=== PATIENT | female | born 1985 | race Caucasian/White ===

== ENCOUNTER 2020-01-26 17:30 | Inpatient (IN) | payer BC ==
[2020-01-26] VITALS (11 sets, daily range): BP systolic 115–154; BP diastolic 62–74; PULSE 76–108; TEMP 97.2–98.5
[~2020-01-26] VITALS: Ht 165.1 cm; Wt 75.9 kg
[2020-01-26 18:21] LABS: BASO % 0.2 % (0.0-2.0); EOS # 0.1 (0.0-0.7); GRAN # 9.4 (1.4-6.5); GRAN % 64.1 % (42.2-75.2); HEMATOCRIT 37.6 % (37.0-47.0); HEMOGLOBIN 13.1 g/dl (12.5-16.0); LYMPH # 3.7 (1.2-3.4); LYMPH % 24.9 % (20.0-51.0); MEAN CELL VOLUME 90 fl (80.0-100.0); MEAN CORPUSCULAR HEMOGLOBIN 31 pg (27.0-31.0); MEAN CORPUSCULAR HGB CONC 35 g/dl (33.0-37.0); MEAN PLATELET VOLUME 10.5 fl (7.4-10.4); MONO # 1.4 (0.1-0.6); MONO % 9.3 % (1.7-9.3); PLATELET COUNT 286 K/mm3 (130-400); REDCELL DISTRIBUTION WIDTH-CV 12.6 % (11.5-14.5)
--- NOTE | 2020-01-26 18:53 | NUR ---
1745 PATIENT HERE FROM HOME WITH COMPLAINTS THAT CONTRACTIONS GETTING VERY INTENSE. SROM AT 1630 AND CONTRACTIONS STARTED RIGHT AFTER AT HOME. EFM ON FHT 125 BABY VERY ACTIVE. CONTRACTIONS EVERY 2 MIN, PATIENT BREATHS THROUGH EACH CONTRACTION. VERY TENSE AND WANTS EPIDURAL NOW. SVE 8/100/0. 1750 DR JARAMILLO CALLED TO COME TO HOSPITAL NOW FOR DELIVERY. IV STARTED IN LEFT WRIST AND BLOOD DRAWN AT THIS TIME BY THIS NURSE AND SENT TO LAB. IVF STARTED AND Boby MILLER NURSE GENERAL DUTY TO COME NOW FOR EPIDURAL PLACEMENT. 1755 PATIENT VERY TENSE AND SWEATY. IV FELL OUT DURING CONTRACTIONS. PATIENT CONTINUES TO BREATH THROUGH EACH CONTRACTION. UNABLE TO REST BETWEEN.PATIENT STARTING TO FEEL PRESSURE WITH EACH CONTRACTION. ENCOURAGED PATIENT TO PANT THROUGH CONTRACTIONS BUT TO NOT PUSH AT THIS TIME. SVE PATIENT COMPLETE, AND FEELING URGE TO PUSH. FHT REMAIN 125. REMAINS AT BEDSIDE. 1800 DR JARAMILLO AT BEDSIDE. WILL PUSH WITH NEXT CONTRACTIONS. 180. BABY GIRL BORN BY DR JARAMILLO. CORD CLAMPED AND CUT BY AND BABY TO MOM CHEST. 1804 PLACENTA DELIVERED AT THIS TIME. FUNDUS FIRM AND MODERATE AMOUNT OF BLEEDING. PATIENT DOES NOT WANT IVV RESTARTED IF DOES NOT NEED IT. DR JARAMILLO ORDERS TO JUST MONITOR BLEEDING FOR NOW. SMALL REPAIR DONE BY DR NAJERA. LIDOCAINE USED AT THIS TIME. 1810 FUNDUS FIRM AND SMALL AMOUNT BLEEDING NOTED.
--- NOTE | 2020-01-26 20:45 | NUR ---
2029 - PT UP TO BATHROOM FOLLOWING RECOVERY. PT ABLE TO VOID 700 ML WITHOUT DIFFICULTIES. PERICARE PROVIDED - PERIPAD, ICEPACK AND MESH UNDERWEAR APPLIED. 2044 - PT TO AMBULATORY WITHOUT DIFFICULTY. PT ORIENTED TO ROOM. QUESTIONS ENCOURAGED AND ANSWERED.
[2020-01-27 02:22] VITALS: BP 112/64; PULSE 64; TEMP 98.4
[2020-01-27] MEDS ORDERED: PRENATAL PO (05:48)
[2020-01-27] MEDS ORDERED: OMEGA-31 SGL PO (05:51)
[2020-01-27] MEDS ORDERED: PROBIOTIC BLEN1 EACH PO (05:52)
[2020-01-27 07:35] VITALS: BP 104/70; PULSE 66; TEMP 98.3
[2020-01-27 15:30] VITALS: BP 122/74; PULSE 57; TEMP 98.2
[2020-01-27 21:00] VITALS: BP 118/78; PULSE 64; TEMP 98.7
[2020-01-28 07:30] VITALS: BP 104/64; PULSE 70; TEMP 98.2
[2020-01-28] MEDS ORDERED: IBU800 M1 PO (10:19)
[2020-01-28 16:00] VITALS: BP 104/68; PULSE 78; TEMP 98.1
== END 2020-01-28 16:17 | disposition home or self-care (01) | DRG 807 ==
LOC: LDRO 17:30 → LDR 17:55 → OB 20:45
PROVIDERS: Obstetrics & Gynecology; ADMIT Student in an Organized Health Care Education/Training Program
PROC: 10E0XZZ Delivery of Products of Conception, External Approach (ICD-10-PCS; principal; 2020-01-26)
PROC: 0KQM0ZZ Repair Perineum Muscle, Open Approach (ICD-10-PCS; 2020-01-26)
DX: O48.0 Post-term pregnancy (principal); Z37.0 Single live birth; O99.824 Streptococcus B carrier state complicating childbirth; Z3A.40 40 weeks gestation of pregnancy; O70.1 Second degree perineal laceration during delivery

== ENCOUNTER → 2020-01-26 | Outpatient (CLI) | payer BC ==
[~2020-01-26] MED LIST: IBU800 M1 PO; OMEGA-31 SGL PO; PRENATAL PO; PROBIOTIC BLEN1 EACH PO
== END ==
LOC: ZCOL.LAB 08:00
DX: Z20.828 Contact with and (suspected) exposure to other viral communicable diseases (principal)

== ENCOUNTER → 2020-02-06 | Outpatient (CLI) | payer BC ==
--- NOTE | 2020-02-06 15:24 | NUR ---
Pt, Hanna Moreno, presents for consult with 11 day old baby girl, Matt Moreno, for a evaluation. Pt has concerns about Matt's latch and possible tongue tie. Matt was born by on 01/26/2019 and weighed 7#14oz (3572 gms). Discharge weight was 7#9oz. Pt reports Matt's weight at her first appointment with Dr. Shelley Metcalf was 7#14oz. This is Hanna's second baby, her first baby did not breastfeed due to other complications. Today Matt weighs 7#11.7 (3506 gms). Pt reports baby has several voids, and stools every 2-3 days. Pt reports Matt breastfeeds directly every other feeding in the daytime and at each feeding in the noc. Matt is bottle fed 2-3oz at three different daytime feedings. She she does pump at these feedings and collects 2-3oz each time. Matt also gets 2-4oz formula through the course of the day as she is not collecting quiet enough to cover all bottle intake. Matt initially has some resistance to latching on the right side, LC advises pt to try cross cradle vs. traditional cradle hold and to use support pillow under Matt. Baby takes a few minutes but eventually latches. This LC does note pt's right breast is not very firm as she assists with latching. After nursing the right side Matt had a weight gain of 22 gms. She is latched to the left breast that does seem to have more fullness in it. After finishing the feeding, total intake was 2oz (56 gms). Matt continues to root after she is dressed. Based on her weight, this LC recommends Matt receive 3 oz per feeding, 8 feedings per day. LC evaluted Matt's oral anatomy and noted there is a mild-moderate tongue tie; that the anterior palate does have a higher arch to it and that Matt sucks well with the finger placed just that deep, when the finger is advanced to proper nipple depth, her suck gets disorganized. This is likely causing decreased transfer of milk while , and overall a decline in milk production. POC: LC advises providing 1oz supplement after each , continue with 3oz feedings at bottle feedings. Pt may elect to discontinue for a short time to pump and bottle. This would allow her to evaluate milk availablity and perhaps increase overall production. Pt will also likely get Gutierrez evaluated for a tongue tie with Dr. Patricia at [facility]. F/U: Pt will notifiy this LC with updates and desire for follow up consultation. Questions invited and answered.
== END ==
LOC: LAC 13:51
DX: Z39.1 Encounter for care and examination of lactating mother (principal); Z71.89 Other specified counseling